=== PATIENT | female | born 1960 | race Caucasian/White ===

== ENCOUNTER 2019-07-08 13:49 | Emergency (ER) | payer OTHER ==
[~2019-07-08] VITALS: Ht 167.6 cm; Wt 67.6 kg
[2019-07-08 13:52] VITALS: BP 142/95
--- NOTE | 2019-07-08 14:03 | PHYS DOC ---
Past History Past Medical History: No Pertinent History Past Surgical History: No Surgical History Smoking: Non-smoker Alcohol Use: None Drug Use: None Adult General Chief Complaint Chief Complaint: ANKLE PROBLEM HPI HPI Patient is a 58-year-old female presents complaining of right ankle pain. Patient was going down a step and sustained an inversion mechanism injury of her right ankle. She has not been able to weight-bear since this happened. She was placed in an aluminum and foam splint ice somebody where this happened. 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 There is no numbness or tingling. No previous ankle injury. No knee pain. No medicine is been taken for this. This happened shortly prior to arrival.[] Review of Systems Review of Systems Constitutional: Denies fever or chills [] Eyes: Denies change in visual acuity, redness, or eye pain [] HENT: Denies nasal congestion or sore throat [] Respiratory: Denies cough or shortness of breath [] Cardiovascular: No chest pain or palpitations[] GI: Denies abdominal pain, nausea, vomiting, bloody stools or diarrhea [] : Denies dysuria or hematuria [] Musculoskeletal: Denies back pain, see history of present illness[] Integument: Denies rash or skin lesions [] Neurologic: Denies headache, focal weakness or sensory changes [] Endocrine: Denies polyuria or polydipsia [] All other systems were reviewed and found to be within normal limits, except as documented in this note. Physical Exam Physical Exam Constitutional: Well developed, well nourished, no acute distress, non-toxic appearance. [] HENT: Normocephalic, atraumatic, bilateral external ears normal, oropharynx moist, no oral exudates, nose normal. [] Eyes: PERRLA, EOMI, conjunctiva normal, no discharge. [] Neck: Normal range of motion, no tenderness, supple, no stridor. [] Cardiovascular:Heart rate regular rhythm, no murmur [] Lungs & Thorax: Bilateral breath sounds clear to auscultation [] Abdomen: Not examined. [] Skin: Warm, dry, no erythema, no rash. [] Back: No tenderness, no CVA tenderness. [] Extremities: Right ankle has tenderness and swelling around the lateral malleolus.The fifth metatarsal tenderness. No medial malleolus tenderness. No knee tenderness. No laxity appreciated. Decreased active range of motion in dorsi and plantar flexion secondary to pain. A joint above and a joined below were evaluated and were normal. The other 3 extremities show: No tenderness, no cyanosis, no clubbing, ROM intact, no edema. [] Neurologic: Alert and oriented X 3, normal motor function, normal sensory function, no focal deficits noted. [] Psychologic: Affect normal, judgement normal, mood normal. [] EKG EKG [] Radiology/Procedures Radiology/Procedures PROCEDURE: ANKLE RIGHT 3V Right ankle x-rays 3 views HISTORY: Fall, right ankle pain. FINDINGS: Small linear bone densities along the dorsal cortex of the navicular on the lateral view could represent small avulsion fractures. On the frontal view there are 2 transverse oriented linear lucencies with mild cortical step-off consistent with fractures. No talus osteochondral lesion. Tibial plafond and medial malleolus intact. IMPRESSION: Acute traumatic fractures of the lateral malleolus. Small cortical avulsion fractures of the dorsal navicular. [] Course & Med Decision Making Course & Med Decision Making Pertinent Labs and Imaging studies reviewed. (See chart for details) ED course: Patient arrived, was placed in bed, and tolerated exam well. She was given pain medicine. She was transferred to and from radiology with any complications. After return of the imaging findings these were discussed with the patient and family who voiced understanding. She was placed in a splint trained on crutches. She was distally neurovascularly intact after splint application. All questions were answered. She was discharged in improved condition. Medical decision making: Patient has a closed fracture lateral malleolus and possible avulsion fracture of the navicular. No evidence of an open fracture. No evidence of neurologic or vascular compromise. No evidence of nonaccidental trauma.[] Dragon Disclaimer Dragon Disclaimer This electronic medical record was generated, in whole or in part, using a voice recognition dictation system. Departure Departure: Impression: Primary Impression: Closed fracture of right distal fibula Disposition: HOME, SELF-CARE Condition: IMPROVED Referrals: GREGORY MOORE MD (PCP) TOBIAS GREGG MD Call Wednesday to arrange follow-up. Let them know you were in the ER. Patient Instructions: Ankle Fracture, Cast or Splint Care, Crutch Use Additional Instructions: Follow-up with orthopedic surgery. Call Wednesday to arrange appointment. [address] [address], [place] [address] No weightbearing with the right foot. Return to the ER if worsening pain, weakness, or any other concerns. Scripts Hydrocodone Bit/Acetaminophen (NORCO 5-325 TABLET) 1 Each Tablet 1 TAB PO Q4-6HRS for severe pain, #20 TAB Prov: JAYSON LEMA DO 07/08/19 Meloxicam (MELOXICAM) 7.5 Mg Tablet 7.5 MG PO DAILY for PAIN, #20 TAB Prov: JAYSON LEMA DO 07/08/19 Problem Qualifiers Primary Impression: Closed fracture of right distal fibula Encounter type: initial encounter Fracture morphology: unspecified fracture morphology Qualified Codes: S82.831A - Other fracture of upper and lower end of right fibula, initial encounter for closed fracture JAYSON LEMA DO Jul 08, 2019 14:03
[2019-07-08] MEDS ORDERED: IBUPROFEN 600 MG TABLET. PO ONE (14:15)
--- NOTE | 2019-07-08 14:41 | RAD ---
Right ankle x-rays 3 views HISTORY: Fall, right ankle pain. FINDINGS: Small linear bone densities along the dorsal cortex of the navicular on the lateral view could represent small avulsion fractures. On the frontal view there are 2 transverse oriented linear lucencies with mild cortical step-off consistent with fractures. No talus osteochondral lesion. Tibial plafond and medial malleolus intact. IMPRESSION: Acute traumatic fractures of the lateral malleolus. Small cortical avulsion fractures of the dorsal navicular. Electronically signed by: Enrike Quintero MD (07/08/2019 2:38 PM) [facility]
[2019-07-08] MEDS ORDERED: MELO7.5T29 PO (14:59)
[2019-07-08] MEDS ORDERED: HYDR-3165 PO (14:59)
[2019-07-08] MEDS ORDERED: HYDROcodone/APAP 5/325MG 1 TAB TABLET PO ONE (15:45)
== END 2019-07-08 16:19 | disposition home or self-care (01) ==
LOC: ER 13:49
DX: S82.831A Other fracture of upper and lower end of right fibula, initial encounter for closed fracture (principal); X50.9XXA Other and unspecified overexertion or strenuous movements or postures, initial encounter; Y93.89 Activity, other specified; Y92.89 Other specified places as the place of occurrence of the external cause; Y99.8 Other external cause status
CPT/HCPCS: 29515; 73610; 99284

== ENCOUNTER 2021-07-31 07:46 | Emergency (ER) | payer OTHER ==
[~2021-07-31] VITALS: Ht 167.6 cm; Wt 67.2 kg
[~2021-07-31 07:46] MED LIST: HYDR-3165 PO; MELO7.5T29 PO
[2021-07-31 07:55] VITALS: BP 134/72
--- NOTE | 2021-07-31 08:13 | RAD ---
EXAM: Left ankle, 3 views. HISTORY: Fall. COMPARISON: None. FINDINGS: 3 views of the left ankle are obtained. There is no fracture, dislocation or subluxation. T he ankle mortise is intact. There is no osteochondral lesion. IMPRESSION: No acute osseous finding. Electronically signed by: Angela Ayala MD (07/31/2021 8:10 AM) [facility]
--- NOTE | 2021-07-31 08:22 | PHYS DOC ---
Past History Past Medical History: No Pertinent History Past Surgical History: No Surgical History Smoking: Non-smoker Alcohol Use: None Drug Use: None General Adult EDM: Chief Complaint: LOWER EXT PAIN HPI: HPI: 60-year-old female presents with a left ankle and foot pain. Patient was raking leaves yesterday when she stepped into a hole that she could not see and twisted her foot. She was able to bear weight at the time. Patient has been achy and painful but this morning she is unable to bear weight without significant pain. She decided she should make sure is not broken. She denies any other injuries or complaints at this time. Review of Systems: Review of Systems: Constitutional: Denies fever or chills Eyes: Denies change in visual acuity HENT: Denies nasal congestion or sore throat Respiratory: Denies cough or shortness of breath Cardiovascular: Denies chest pain or edema GI: Denies abdominal pain, nausea, vomiting, bloody stools or diarrhea : Denies dysuria Musculoskeletal: Left ankle pain Integument: Denies rash Neurologic: Denies headache, focal weakness or sensory changes Endocrine: Denies polyuria or polydipsia Lymphatic: Denies swollen glands Psychiatric: Denies depression or anxiety Allergies: Allergies: Allergies Coded Allergies Type Severity Reaction Last Updated Verified Penicillins Allergy Unknown 07/08/19 Yes Physical Exam: PE: Constitutional: Well developed, well nourished, no acute distress, non-toxic appearance. [] HENT: Normocephalic, atraumatic, bilateral external ears normal, oropharynx moist, no oral exudates, nose normal. [] Eyes: PERRLA, EOMI, conjunctiva normal, no discharge. [] Neck: Normal range of motion, no tenderness, supple, no stridor. [] Cardiovascular:Heart rate regular rhythm, no murmur [] Lungs & Thorax: Bilateral breath sounds clear to auscultation [] Abdomen: Bowel sounds normal, soft, no tenderness, no masses, no pulsatile masses. [] Skin: Warm, dry, no erythema, no rash. [] Back: No tenderness, no CVA tenderness. [] Extremities: Mild tenderness lateral foot, no tenderness over malleoli, no ecchymosis, no obvious deformity. [] Neurologic: Alert and oriented X 3, normal motor function, normal sensory function, no focal deficits noted. [] Psychologic: Affect normal, judgement normal, mood normal. [] Current Patient Data: Vital Signs: Vital Signs Date Time Temp Pulse Resp B/P (MAP) Pulse Ox O2 Delivery O2 Flow Rate FiO2 07/31/21 07:55 98.4 89 16 134/72 (92) 98 Room Air EKG: EKG: [] Radiology/Procedures: Radiology/Procedures: [] Impressions: EXAM: Left ankle, 3 views. HISTORY: Fall. COMPARISON: None. FINDINGS: 3 views of the left ankle are obtained. There is no fracture, dislocation or subluxation. The ankle mortise is intact. There is no osteochondral lesion. IMPRESSION: No acute osseous finding. Electronically signed by: Angela Ayala MD (07/31/2021 8:10 AM) [facility] DICTATED AND SIGNED BY: ANGELA AYALA MD DATE: 07/31/21 0810 CC: GREGORY MOORE MD; DONNA IBANEZ DO ~MTH0 0 Heart Score: C/O Chest Pain: N/A Risk Factors: Risk Factors: DM, Current or recent (<one month) smoker, HTN, HLP, family history of CAD, obesity. Risk Scores: Score 0 - 3: 2.5% MACE over next 6 weeks - Discharge Home Score 4 - 6: 20.3% MACE over next 6 weeks - Admit for Clinical Observation Score 7 - 10: 72.7% MACE over next 6 weeks - Early Invasive Strategies Course & Med Decision Making: Course & Med Decision Making Pertinent Labs and Imaging studies reviewed. (See chart for details) The patient's x-ray is negative for acute findings. This appears to be a m idfoot sprain. She does not have a pain with medial or lateral rotation of the ankle. I have advised supportive care such as ibuprofen, rest, compression. She is stable for discharge at this time. [] Dragon Disclaimer: Dragon Disclaimer: This electronic medical record was generated, in whole or in part, using a voice recognition dictation system. Departure Departure: Impression: Primary Impression: Sprain of foot, left Qualified Codes: S93.602A - Unspecified sprain of left foot, initial encounter Disposition: HOME / SELF CARE / HOMELESS Condition: STABLE Referrals: GREGORY MOORE MD (PCP) Patient Instructions: Foot Sprain DONNA IBANEZ DO Jul 31, 2021 08:22
== END 2021-07-31 08:40 | disposition home or self-care (01) ==
LOC: ER 07:46
DX: S93.602A Unspecified sprain of left foot, initial encounter (principal); W18.31XA Fall on same level due to stepping on an object, initial encounter; Y93.89 Activity, other specified; Y92.89 Other specified places as the place of occurrence of the external cause; Y99.8 Other external cause status
CPT/HCPCS: 73610; 99283-25